=== PATIENT | female | born 1940 | race Caucasian/White ===

== ENCOUNTER 2018-11-08 07:24 | Observation (INO) | payer OTHER ==
[~2018-11-08] VITALS: Ht 165.1 cm; Wt 81.7 kg
[~2018-11-08 07:24] MED LIST: ACET325 PO; ACET500 PO; CALCA500CH PO; CALCIUM POLYCARBOPHIL PO; CALCIUM WITH V1 EACH PO; CELE200 PO; Diovan320 MG; FIBER LAXATIVE PO; GABA100 PO; Hair, Skin & N1 EACH PO; LOSARTAN-HCTZ1 EACH PO; METO100ER PO; OMEP20ER PO
--- NOTE | 2018-11-08 08:22 | NUR ---
PT ADMITTED TO [facility]. AGREES WITH PLANNED SURGERY. MEDS, ALLERGIES AND HX REVIEWED. LUNG SOUNDS CLEAR. PCN ALLERGY AND ANCEF ORDER CLARIFIED WITH DR. FELIX. SHE STATES OK TO PROCEDE WITH ANCEF.
--- NOTE | 2018-11-08 08:33 | NUR ---
NOXIN X3 AMPULES TO NARES BILATERALLY.
--- NOTE | 2018-11-08 09:42 | NUR ---
0930 UP TO VOID.
--- NOTE | 2018-11-08 10:31 | NUR ---
UP TO VOID.
--- NOTE | 2018-11-08 11:41 | NUR ---
11/08/18 1141 [facility],Maritza TENORIO ATTEMPTED SPINAL, UNABLE TO COMPLETE, SWITCHED TO GENERAL.
--- NOTE | 2018-11-08 15:01 | NUR ---
CONSENT FOR CARE PT GAVE THIS SWEDGER PERMISSION TO CARE FOR HER 11/08/18
--- NOTE | 2018-11-08 16:20 | NUR ---
PT STABLE POST OP. PAIN CONTROLLED WITH PRN AND SCHEDULED MEDS. PT TERRY PO WELL. CONT IV FLUIDS. T. ACID COMPLETE. IV ABX SCHEDULED POST OP. PT CALLS APPROPRIATELY. PT HAS NOT WORKED WITH PT YET POST OP. PT HAS NOT VOIDED YET POST OP.
[2018-11-09 04:32] LABS: BASOPHILS ABSOLUTE AUTO 0.01 K/mm3 (0.00-0.23); BASOPHILS PERCENT AUTO 0 % (0-2); EOSINOPHILS PERCENT AUTO 0 % (0-6); Hematocrit 35.7 % (33.0-51.0); IMMATURE GRAN ABSOLUTE AUTO 0.03 K/mm3 (0.00-0.10); IMMATURE GRAN PERCENT AUTO 0 % (0-1); LYMPHOCYTES ABSOLUTE AUTO 0.58 K/mm3 (0.84-5.20); LYMPHOCYTES PERCENT AUTO 6 % (21-46); MONOCYTES ABSOLUTE AUTO 0.59 K/mm3 (0.16-1.47); MONOCYTES PERCENT AUTO 6 % (4-13); Mean Corpuscular HGB Conc 33.6 g/dL (31.5-36.5); Mean Corpuscular Volume 95 fL (80-100); NEUTROPHILS ABSOLUTE AUTO 8.78 K/mm3 (1.96-9.15); NEUTROPHILS PERCENT AUTO 88 % (41-73); Platelet Count 92 K/mm3 (150-400); RDW Coefficient Variation 12.1 % (11.7-14.2); RDW Standard Deviation 42.2 fL (35.1-46.3); Red Blood Cell Count 3.75 M/mm3 (3.80-5.20); White Blood Cell Count 9.99 K/mm3 (4.00-11.30)
[2018-11-09 04:52] LABS: Anion Gap 9 mmol/L (6-16); Blood Urea Nitrogen 20 mg/dL (8-24); Bun/Creatinine Ratio 24.1 (12.0-20.0); CO2, Blood 28 mmol/L (21-32); Calcium, Blood 8.9 mg/dL (8.5-10.1); Chloride, Blood 99 mmol/L (98-108); Creatinine, Blood 0.83 mg/dL (0.40-1.00); Glomerular Filtration Rate >60 (60-); Glucose, Blood 175 mg/dL (70-99); Magnesium, Blood 1.4 mg/dL (1.6-2.4); Potassium, Blood 3.7 mmol/L (3.5-5.5); Sodium, Blood 136 mmol/L (136-145)
--- NOTE | 2018-11-09 08:38 | NUR ---
SHIFT SUMMARY PT A&O X4 T/O SHIFT. POD# 1 L TKA; DRESSING TO L ANT KNEE CDI T/O SHIFT. PT DENIES N/T IN EXT; PPP. PAIN MANGED PER EMAR; CRYOTHERAPY TO L KNEE T/O SHIFT. . ROBEL'S AND SCD'S TO BLE'S. PT UP TO BSC AND THEN TOILET WITH SBA, GB AND FWW. RA; PT DENIES SOB AND CP T/O SHIFT. NAUSEA RESOLVED OVER SHIFT; PT REFUSED NAUSEA MEDICATION. CALL LIGHT IN REACH; PT DEMONSTRATES USE. REPORT GIVEN TO DAY SHIFT RN.
--- NOTE | 2018-11-09 18:36 | NUR ---
SHIFT SUMMARY PT A&OX4, VSS, POD#1 L TKA, AQUACEL/ACEWRAP CDI, SCDS, TEDS, POLAR HUI ON. DENIES PAIN AT THIS TIME, OXY GIVEN 2X, HAS BEEN NAUSEATED TX 4X, PLAN IS TO TRY ULTRAM FOR PAIN. AMB W/FWW & GB TO BRP, CHAIR AND HALLWAY. VOIDING WELL. AT THIS TIME UP TO A CHAIR, INTAKING SMALL AMTS DINNER. WCTM & TX PER EMAR UNTIL REPORT GIVEN TO ONCOMING TIMMY RN.
--- NOTE | 2018-11-10 04:42 | NUR ---
SHIFT SUMMARY: PT POD 2 L TKA. PAIN MANAGED WITH TYLENOL. PT DID NOT NEED ADDITIONAL PAIN MEDICATION, HOWEVER IF PT C/O PAIN, WILL MEDICATE WITH ULTRAM. C/O OF N/V THROUGHOUT SHIFT. MEDICATED WITH ZOFRAN AND PHENERGAN PER EMAR. EMESIS X2. SBA TO BATHROOM WITH WALKER. VOIDING WELL. TERRY ACTIVITY WELL. IN CHAIR FOR MOST OF SHIFT. AQUACEL DRESSING AND CRYOTHERAPY PLACED ON L KNEE. SKUDS AND ROBEL HOSE IN PLACE. SALINE LOCKED AND DRINKING FLUIDS. WILL CONTINUE TO MONITOR FOR N/V.
[2018-11-10] MEDS ORDERED: ACET500 PO (14:15)
[2018-11-10] MEDS ORDERED: ASPI325EC PO (14:16)
[2018-11-10] MEDS ORDERED: ROXICODONE5 MG PO (14:21)
--- NOTE | 2018-11-10 18:09 | NUR ---
reviewed discharge instructions with patient, patients and son. questions answered. patient denies nausea, reports curent pain level is 2. dressing to knee clean dry and intact. 2 aquacell dressings sent home with patient. Krystyna Colin RN
[2018-11-11] MEDS ORDERED: TRAM50 PO (15:50)
[2018-11-11] MEDS ORDERED: Prilosec Otc20 MG PO (18:10)
== END 2018-11-10 18:10 | disposition home or self-care (01) ==
LOC: ORSCMMR 07:24 → SURS 07:26 → ORSCMMR 07:26 → ORD 11:00 → ORSCMMR 11:00 → SURS 14:42 → ORSCMMR 11-10 18:10 → SURS 11-10 18:10
PROVIDERS: ADMIT Orthopaedic Surgery
PROC: 0SRC0J9 Replacement of Right Knee Joint with Synthetic Substitute, Cemented, Open Approach (ICD-10-PCS; principal; 2018-11-08 11:00)
DX: M17.12 Unilateral primary osteoarthritis, left knee (principal); J45.909 Unspecified asthma, uncomplicated; I10 Essential (primary) hypertension; Z88.0 Allergy status to penicillin; Z88.8 Allergy status to other drugs, medicaments and biological substances; Z79.899 Other long term (current) drug therapy
CPT/HCPCS: 36415; 73560-LT; 80048; 83735; 84132; 85025; 88300; 97110; 97116; 97162; 97530; C1713; C1776; G0378; J0171; J0330; J0690; J0735; J2370; J2405; J2765; J2795; J3010; J7120

== ENCOUNTER 2018-11-11 15:30 | Emergency (ER) | payer OTHER ==
[~2018-11-11] VITALS: Ht 165.1 cm; Wt 81.7 kg
[~2018-11-11 15:30] MED LIST changes: +ASPI325EC PO; +ROXICODONE5 MG PO
[2018-11-11] MEDS ORDERED: TRAM50 PO (15:50)
[2018-11-11 16:11] LABS: BASOPHILS ABSOLUTE AUTO 0.02 K/mm3 (0.00-0.23); BASOPHILS PERCENT AUTO 0 % (0-2); EOSINOPHILS ABSOLUTE AUTO 0.01 K/mm3 (0.00-0.68); EOSINOPHILS PERCENT AUTO 0 % (0-6); Hematocrit 33.5 % (33.0-51.0); Hemoglobin 11.5 g/dL (11.5-16.0); IMMATURE GRAN ABSOLUTE AUTO 0.04 K/mm3 (0.00-0.10); IMMATURE GRAN PERCENT AUTO 0 % (0-1); LYMPHOCYTES ABSOLUTE AUTO 0.84 K/mm3 (0.84-5.20); LYMPHOCYTES PERCENT AUTO 9 % (21-46); MONOCYTES ABSOLUTE AUTO 0.82 K/mm3 (0.16-1.47); MONOCYTES PERCENT AUTO 8 % (4-13); Mean Corpuscular HGB 32.2 pg (26.0-34.0); Mean Corpuscular HGB Conc 34.3 g/dL (31.5-36.5); Mean Corpuscular Volume 94 fL (80-100); Mean Platelet Volume 12.1 fL (9.1-12.4); NEUTROPHILS ABSOLUTE AUTO 7.99 K/mm3 (1.96-9.15); NEUTROPHILS PERCENT AUTO 82 % (41-73); Platelet Count 90 K/mm3 (150-400); RDW Coefficient Variation 12.2 % (11.7-14.2); RDW Standard Deviation 42.5 fL (35.1-46.3); Red Blood Cell Count 3.57 M/mm3 (3.80-5.20); White Blood Cell Count 9.72 K/mm3 (4.00-11.30)
[2018-11-11 16:27] LABS: Alanine Aminotransfer (ALT/SGP 11 U/L (12-78); Albumin, Blood 2.5 g/dL (3.4-5.0); Albumin/Globulin Ratio 0.8 (0.8-1.8); Alk Phos 53 U/L (50-136); Anion Gap 8 mmol/L (6-16); Aspartate Aminotrans (AST/SGOT 25 U/L (12-37); Bilirubin, Total 0.6 mg/dL (0.1-1.0); Blood Urea Nitrogen 14 mg/dL (8-24); Bun/Creatinine Ratio 17.9 (12.0-20.0); CO2, Blood 30 mmol/L (21-32); Calcium, Blood 9.1 mg/dL (8.5-10.1); Chloride, Blood 96 mmol/L (98-108); Creatinine, Blood 0.78 mg/dL (0.40-1.00); Globulin, Blood 3.1 g/dL (2.2-4.0); Glomerular Filtration Rate >60 (60-); Glucose, Blood 108 mg/dL (70-99); Potassium, Blood 3.6 mmol/L (3.5-5.5); Sodium, Blood 134 mmol/L (136-145); Total Protein, Blood 5.6 g/dL (6.4-8.2)
[2018-11-11] MEDS ORDERED: Prilosec Otc20 MG PO (18:10)
== END 2018-11-11 18:22 | disposition left against medical advice (07) ==
LOC: ER 15:30
PROVIDERS: Physician Assistant
DX: K92.2 Gastrointestinal hemorrhage, unspecified (principal); Z88.0 Allergy status to penicillin
CPT/HCPCS: 36415; 80053; 82272; 85025; 99284

== ENCOUNTER 2018-11-13 09:20 | Day surgery (SDC) | payer OTHER ==
[~2018-11-13 09:20] MED LIST changes: +Prilosec Otc20 MG PO; +TRAM50 PO
--- NOTE | 2018-11-13 10:00 | NUR ---
DIRECT ADMIT: PT ARRIVED TO ROOM 227 A DIRECT ADMIT. PT HAS BEEN NPO SINCE MIDNIGHT, PT STATES SHE HAS HAD POOR PO INTAKE FOR SEVERAL DAYS. UNABLE TO GET IV ACCESS. DAY SURGERY NOTIFIED. PT DENIES ANY NAUSEA AT THIS TIME. PT HAD BLACK STOOL X1 AT HOME AND NONE SINCE. DENIES EMESIS AT HOME.
--- NOTE | 2018-11-13 10:33 | NUR ---
FROM SURGICAL FLOOR TO SDS IV TO BE STARTED IN SDS
--- NOTE | 2018-11-13 10:58 | NUR ---
11/13/18 1058 [facility] Do Bite Block PlacedPATIENT DETERMINED TO BE ASA APPROPRIATE FOR PROPOFOL SEDATION PRIOR TO START OF PROCEDURE BY 3-LEAD EKG REVIEWED WITH PHYSICIAN PRIOR TO START OF PROCEDURE.Patient to ENDO 1Glasses Removed MONITOR INTACT WITH CONTINUOUS PULSE OXIMETRY AND INTERMITTENT BP.O2 VIA N/C INTACT THROUGHOUT SEDATION/PROCEDURE.Patient confirms NPO status and agrees with scheduled surgery.
--- NOTE | 2018-11-13 13:30 | NUR ---
DISCHARGE: PT RETURNED TO ROOM AT NOON. POST OP VITALS STABLE. PT HAS BEEN UP TO VOID. TERRY SMALL AMTS PO. PT HAS NO PAIN. NO BLEEDING. DC TO HOME AT THIS TIME WITH SPOUSE. VERBAL UNDERSTANDING OF INSTRUCTIONS, FOLLOW UP AND MEDICATIONS. IV DC'D WNL. PT LEFT VIA WHEELCHAIR WITH BELONGINGS.
== END 2018-11-13 13:30 | disposition home or self-care (01) ==
LOC: ORSCMMR 09:20 → EDSTATUS 11:00 → SURS 13:30 → ORSCMMR 13:30 → SURS 13:30
PROVIDERS: Internal Medicine Gastroenterology
PROC: 0DB58ZX Excision of Esophagus, Via Natural or Artificial Opening Endoscopic, Diagnostic (ICD-10-PCS; principal; 2018-11-13 11:00)
DX: K22.10 Ulcer of esophagus without bleeding (principal); K44.9 Diaphragmatic hernia without obstruction or gangrene; K92.1 Melena; I10 Essential (primary) hypertension; G47.33 Obstructive sleep apnea (adult) (pediatric); Z79.899 Other long term (current) drug therapy; Z79.82 Long term (current) use of aspirin; Z88.8 Allergy status to other drugs, medicaments and biological substances; Z88.0 Allergy status to penicillin
CPT/HCPCS: 88305; 88312; J7120

== ENCOUNTER → 2019-11-28 | Outpatient (CLI) | payer OTHER | LOC: LAB EV 10:49 → LAB SHORT 10:49 | DX: L70.0 Acne vulgaris (principal) | CPT/HCPCS: 87070; 87205 ==

== ENCOUNTER → 2020-10-09 | Outpatient (CLI) | payer OTHER | LOC: LAB SHORT 17:15 → PLD 17:15 | DX: D48.5 Neoplasm of uncertain behavior of skin (principal); D69.2 Other nonthrombocytopenic purpura | CPT/HCPCS: 88305 ==

== ENCOUNTER 2022-09-14 08:51 | Inpatient (IN) | payer OTHER ==
[~2022-09-14] VITALS: Ht 162.6 cm; Wt 85.6 kg
[2022-09-14 12:09] LABS: Source, Urine Foley catheter
[2022-09-14 12:15] LABS: Appearance, Urine Clear (Clear); Bilirubin, Urine Neg (Neg); Blood, Urine Neg (Neg); Color, Urine Yellow (P-Yellow); Glucose Qualitative, Urine Neg (Neg); Ketones, Urine Neg (Neg); Leukocyte Esterase, Urine Neg (Neg); Nitrite, Urine Neg (Neg); Protein, Urine Neg (Neg); Specific Gravity, Urine 1.015 (1.003-1.022); Urobilinogen, Urine NORM (Normal)
--- NOTE | 2022-09-14 14:53 | NUR ---
PT RESTING IN BED, SHE REPORTS FEELING COMFORTABLE, SHE IS AWARE HER FOOT IS BROKEN BUT HAS NO PAIN ASSOCIATED WITH IT. DENIES SHORTNESS OF BREATH, DENIES FURTHER NEEDS. SPOKE WITH PATIENT REGARDING NPO STATUS AT MIDNIGHT FOR SURGERY TOMORROW.
--- NOTE | 2022-09-14 18:28 | NUR ---
SHIFT SUMMARY NO ACUTE CHANGES SINCE ARRIVAL TO FLOOR, SHE CONTINUES TO DENY PAIN. SENSATION REMAINS INTACT. PT AWARE OF PLAN FOR SURGERY TOMORROW AND NPO STATUS. TOLERATING PO WELL AT THIS TIME, MARS PATENT AND DRAINING.
[2022-09-15 04:51] LABS: BASOPHILS ABSOLUTE AUTO 0.02 K/mm3 (0.00-0.23); BASOPHILS PERCENT AUTO 0 % (0-2); EOSINOPHILS ABSOLUTE AUTO 0.08 K/mm3 (0.00-0.68); EOSINOPHILS PERCENT AUTO 1 % (0-6); Hematocrit 34.4 % (33.0-51.0); Hemoglobin 11.9 g/dL (11.5-16.0); IMMATURE GRAN ABSOLUTE AUTO 0.01 K/mm3 (0.00-0.10); IMMATURE GRAN PERCENT AUTO 0 % (0-1); LYMPHOCYTES ABSOLUTE AUTO 0.88 K/mm3 (0.84-5.20); LYMPHOCYTES PERCENT AUTO 12 % (21-46); MONOCYTES ABSOLUTE AUTO 0.66 K/mm3 (0.16-1.47); MONOCYTES PERCENT AUTO 9 % (4-13); Mean Corpuscular HGB 32.1 pg (26.0-34.0); Mean Corpuscular HGB Conc 34.6 g/dL (31.5-36.5); Mean Corpuscular Volume 93 fL (80-100); Mean Platelet Volume 11.7 fL (9.1-12.4); NEUTROPHILS PERCENT AUTO 77 % (41-73); Platelet Count 96 K/mm3 (150-400); RDW Coefficient Variation 12.4 % (11.7-14.2); RDW Standard Deviation 42.5 fL (35.1-46.3); Red Blood Cell Count 3.71 M/mm3 (3.80-5.20); White Blood Cell Count 7.15 K/mm3 (4.00-11.30)
--- NOTE | 2022-09-15 04:57 | NUR ---
SHIFT SUMMARY AOX4. SUN'AQ. VSS. REPORTS 2-5/10 PAIN IN L ANKLE, DENIES NEED FOR MEDICATION STATES TOLERABLE & PAIN LEVEL IS BETTER THAN PREVIOUS DAY. DENIES N/V OR DYSPNEA. PT PLANNED FOR L ANKLE SURGERY TODAY. ABLE TO WIGGLE GREAT TOE L FOOT, CAP REFIL <3, CAN RAISE L LEG OFF BED. UNABLE TO FEEL PULSE SINCE [place]A WRAP & SPLINT IN PLACE, DRESSING C/D/I. CALL LIGHT IN REACH & PT ABLE TO MAKE NEEDS KNOWN.
[2022-09-15 05:27] LABS: Albumin, Blood 2.8 g/dL (3.4-5.0); Bilirubin, Total 0.8 mg/dL (0.1-1.0); Bun/Creatinine Ratio 32.2 (12.0-20.0); Calcium, Blood 9.4 mg/dL (8.5-10.1); Creatinine, Blood 0.78 mg/dL (0.40-1.00); Globulin, Blood 2.9 g/dL (2.2-4.0); Magnesium, Blood 1.8 mg/dL (1.6-2.4); Potassium, Blood 3.4 mmol/L (3.5-5.5); Total Protein, Blood 5.7 g/dL (6.4-8.2)
--- NOTE | 2022-09-15 18:16 | NUR ---
SHIFT SUMMARY PT A&OX4, VSS/2LNC. BACK FROM PACU @ 1750, SLEEPING COMFORTABLY/WAKES EASILY. S/P L ORIF, SPLINT/[place]A WRAP, ELEVATED. WILL REPORT TO ONCOMING TIMMY RN.
[2022-09-16 05:20] LABS: BASOPHILS ABSOLUTE AUTO 0.01 K/mm3 (0.00-0.23); BASOPHILS PERCENT AUTO 0 % (0-2); EOSINOPHILS PERCENT AUTO 0 % (0-6); Hematocrit 35.5 % (33.0-51.0); Hemoglobin 12.3 g/dL (11.5-16.0); IMMATURE GRAN ABSOLUTE AUTO 0.04 K/mm3 (0.00-0.10); IMMATURE GRAN PERCENT AUTO 1 % (0-1); LYMPHOCYTES ABSOLUTE AUTO 0.54 K/mm3 (0.84-5.20); LYMPHOCYTES PERCENT AUTO 6 % (21-46); MONOCYTES ABSOLUTE AUTO 0.86 K/mm3 (0.16-1.47); MONOCYTES PERCENT AUTO 10 % (4-13); Mean Corpuscular HGB 32.3 pg (26.0-34.0); Mean Corpuscular HGB Conc 34.6 g/dL (31.5-36.5); Mean Corpuscular Volume 93 fL (80-100); Mean Platelet Volume 11.7 fL (9.1-12.4); NEUTROPHILS ABSOLUTE AUTO 7.41 K/mm3 (1.96-9.15); NEUTROPHILS PERCENT AUTO 84 % (41-73); Platelet Count 88 K/mm3 (150-400); RDW Coefficient Variation 12.4 % (11.7-14.2); RDW Standard Deviation 42.5 fL (35.1-46.3); Red Blood Cell Count 3.81 M/mm3 (3.80-5.20); White Blood Cell Count 8.86 K/mm3 (4.00-11.30)
[2022-09-16 05:38] LABS: Albumin, Blood 2.6 g/dL (3.4-5.0); Albumin/Globulin Ratio 0.8 (0.8-1.8); Bilirubin, Total 0.5 mg/dL (0.1-1.0); Bun/Creatinine Ratio 30.2 (12.0-20.0); Calcium, Blood 9.3 mg/dL (8.5-10.1); Creatinine, Blood 0.76 mg/dL (0.40-1.00); Globulin, Blood 3.1 g/dL (2.2-4.0); Potassium, Blood 3.8 mmol/L (3.5-5.5); Total Protein, Blood 5.7 g/dL (6.4-8.2)
--- NOTE | 2022-09-16 06:04 | NUR ---
SHIFT SUMMARY POD1 L ORIF ANKLE WITH SPLINT AND [place]A WRAP REMAIN CDI. PT WAS VERY DROWSY ALL NIGHT. UNABLE TO GIVE NIGHT MEDS BECAUSE SHE HAD A HARD TIME WAKING UP. VSS. MILDLY HTN. PT IS DOING MUCH BETTER THIS MORNING. SHE IS MORE ALERT AND ANSWERS APPROPRIATELY. PLEASANTLY CONFUSED EASILY REORIENTED. IV FLUIDS INFUSING. PT ALSO DENIES PAIN. MARS PATENT WITH 950ML OUTPUT. CALL LIGHT WITHIN REACH. WILL PROVIDE REPORT TO ONCOMING NURSE.
--- NOTE | 2022-09-16 17:33 | NUR ---
SHIFT SUMMARY PT A&OX4, VSS/RA. POD1 L ANKLE ORIF, SPLINT/[place] WRAP CDI, NWB, ELEVATED. PAIN MANAGED WITH TYLENOL, DENIES NEED FOR OXY. STAND PIVOT TO BSC/BED/CHAIR. TERRY PO. MARS REMOVED AT 1443, AWAITING POST REMOVAL VOID. INCENTIVE SPIROMETER EDU/ENC AND PT DEMONSTRATED T/O SHIFT. WILL REPORT TO ONCOMING NOC RN.
--- NOTE | 2022-09-17 05:42 | NUR ---
MEASUREMENT SUPERINTENDENT SUMMARY PT IS POD 0 FOR L ANKLE ORIF. PT HAS DONE WELL TRANSFERRING TO [facility] WITH A STAND PIVOT AND 1-2 PERSON ASSIST. NWB ON L FOOT. PT HAS VOIDED MULTIPLE TIMES THROUGH THE NIGHT. PT REPORTS MINIMAL PAIN, JUST SOME DISCOMFORT WHILE AMBULATING. PT HAS FULL SENSATION TO L FOOT/LEG AND CAN WIGGLE TOES. VSS, WILL CONTINUE TO MONITOR.
--- NOTE | 2022-09-17 18:29 | NUR ---
SHIFT SUMMARY POD 2 L ANKLE ORIF. SPLINT & [place] WRAP IN PLACE, C/D/I. WORKED WOTH PT & OT THIS SHIFT AND DID VERY WELL. TRANSFERRING 1P ASSIST TO BSC/CHAIR/BED, NWB LEFT LEG. REPORTS MINIMAL PAIN, MEDICATED WITH TYLENOL PER EMAR. EATING, DRINKING, & VOIDING WELL. APPROVED TO SNF, AWAITING INSURANCE APPROVAL. CALLS APPROPRIATELY, CALL LIGHT INR EACH. WILL REPORT TO ONCOMING RN.
--- NOTE | 2022-09-18 05:14 | NUR ---
METAL MODEL MAKER SUMMARY POD 2 FOR L ANKLE ORIF. PT CONTINUES TO DO WELL WITH NWB STATUS ON L FOOT, ABLE TO TURN/PIVOT TO BSC/CHAIR WITH 1 ASSIST. PAIN CONTROLLED WITH SCHEDULED TYLENOL. PT IS PENDING INSURANCE APPROVAL TO BE PLACED AT SNF. VSS, WILL CONTINUE TO MONITOR.
[2022-09-18 13:16] LABS: BASOPHILS ABSOLUTE AUTO 0.01 K/mm3 (0.00-0.23); BASOPHILS PERCENT AUTO 0 % (0-2); EOSINOPHILS ABSOLUTE AUTO 0.06 K/mm3 (0.00-0.68); EOSINOPHILS PERCENT AUTO 1 % (0-6); Hematocrit 32.8 % (33.0-51.0); Hemoglobin 11.1 g/dL (11.5-16.0); IMMATURE GRAN ABSOLUTE AUTO 0.01 K/mm3 (0.00-0.10); IMMATURE GRAN PERCENT AUTO 0 % (0-1); LYMPHOCYTES ABSOLUTE AUTO 0.87 K/mm3 (0.84-5.20); LYMPHOCYTES PERCENT AUTO 14 % (21-46); MONOCYTES ABSOLUTE AUTO 0.41 K/mm3 (0.16-1.47); MONOCYTES PERCENT AUTO 7 % (4-13); Mean Corpuscular HGB 31.8 pg (26.0-34.0); Mean Corpuscular HGB Conc 33.8 g/dL (31.5-36.5); Mean Corpuscular Volume 94 fL (80-100); Mean Platelet Volume 11.8 fL (9.1-12.4); NEUTROPHILS ABSOLUTE AUTO 4.87 K/mm3 (1.96-9.15); NEUTROPHILS PERCENT AUTO 78 % (41-73); Platelet Count 115 K/mm3 (150-400); RDW Coefficient Variation 12.5 % (11.7-14.2); RDW Standard Deviation 42.9 fL (35.1-46.3); Red Blood Cell Count 3.49 M/mm3 (3.80-5.20); White Blood Cell Count 6.23 K/mm3 (4.00-11.30)
[2022-09-18 13:38] LABS: Albumin, Blood 2.4 g/dL (3.4-5.0); Albumin/Globulin Ratio 0.7 (0.8-1.8); Bilirubin, Total 0.4 mg/dL (0.1-1.0); Bun/Creatinine Ratio 22.2 (12.0-20.0); Calcium, Blood 9.5 mg/dL (8.5-10.1); Creatinine, Blood 0.77 mg/dL (0.40-1.00); Globulin, Blood 3.4 g/dL (2.2-4.0); Potassium, Blood 3.7 mmol/L (3.5-5.5); Total Protein, Blood 5.8 g/dL (6.4-8.2)
--- NOTE | 2022-09-18 18:07 | NUR ---
PT REPORTS LITTLE TO NO PAIN TO LEFT ANKLE, REPORTS HAVING NECK PAIN WHICH SHE HAD PRIOR TO ADMISSION. PT 1 PERSON TRANSFER WITH USE OF WALKER AND MAINTAINS NON WEIGHT BEARING STATUS. DENIES PAIN WITH VOIDING. UA ORDERED AND PT HAD BM WITH LAST VOIDED SPECIMEN
[2022-09-18 18:47] LABS: Source, Urine Clean Catch
[2022-09-18 18:51] LABS: Appearance, Urine Clear (Clear); Bilirubin, Urine Neg (Neg); Blood, Urine 1+ (Neg); Color, Urine Yellow (P-Yellow); Glucose Qualitative, Urine Neg (Neg); Ketones, Urine Neg (Neg); Leukocyte Esterase, Urine 1+ (Neg); Nitrite, Urine Neg (Neg); Protein, Urine 1+ (Neg); Urobilinogen, Urine NORM (Normal)
[2022-09-18 19:00] LABS: Bacteria Rare /hpf; Squamous Epithelial Cells Many /hpf (Few)
--- NOTE | 2022-09-19 04:48 | NUR ---
WATER JET OPERATOR SUMMARY POD 2 L ANKLE ORIF. PT DENIES PAIN MEDS ASIDE FROM SCHEDULED TYLENOL. DOING BETTER WITH GETTING FROM BED TO CHAIR W/ NWB STATUS OF L FOOT. SOME DISORIENTATION TONIGHT AFTER PT WAKES UP, PT EASILY REORIENTED. PT HAD REPORTED THAT PEOPLE WERE COMING TO "DO SOME REMODELING OF THIS ROOM". VSS, WILL CONTINUE TO MONITOR.
[2022-09-19 13:38] LABS: SARS-Cov-2 (COVID-19) PCR, MMC NEGATIVE (NEGATIVE)
--- NOTE | 2022-09-19 14:33 | NUR ---
REPORT CALLED TO MOON ROBERTS AT [facility] WHO WILL BE RECEIVING PATIENT.
--- NOTE | 2022-09-19 15:43 | NUR ---
PT DISCHARGED VIA NON EMERGENCY TRANSPORT [facility]. PT IN AGREEMENT WITH PLAN TO TRANSFER TO SNF
== END 2022-09-19 15:30 | disposition home or self-care (01) | DRG 494 ==
LOC: ER 08:51 → SURS 11:59
PROVIDERS: Family Medicine; Hospitalist; Orthopaedic Surgery; Physician Assistant; ADMIT Internal Medicine
PROC: 2W3TX1Z Immobilization of Left Foot using Splint (ICD-10-PCS; 2022-09-14)
PROC: 0QSH04Z Reposition Left Tibia with Internal Fixation Device, Open Approach (ICD-10-PCS; 2022-09-15)
PROC: 0QSK04Z Reposition Left Fibula with Internal Fixation Device, Open Approach (ICD-10-PCS; principal; 2022-09-15 15:00)
DX: S82.852A Displaced trimalleolar fracture of left lower leg, initial encounter for closed fracture (principal); S93.05XA Dislocation of left ankle joint, initial encounter; K21.9 Gastro-esophageal reflux disease without esophagitis; I10 Essential (primary) hypertension; G47.33 Obstructive sleep apnea (adult) (pediatric); G43.909 Migraine, unspecified, not intractable, without status migrainosus; M17.12 Unilateral primary osteoarthritis, left knee; D69.6 Thrombocytopenia, unspecified; N39.46 Mixed incontinence; R35.0 Frequency of micturition; I67.2 Cerebral atherosclerosis; Z20.822 Contact with and (suspected) exposure to COVID-19; W01.0XXA Fall on same level from slipping, tripping and stumbling without subsequent striking against object, initial encounter; Z96.652 Presence of left artificial knee joint; Z88.0 Allergy status to penicillin; Z88.8 Allergy status to other drugs, medicaments and biological substances; Z79.899 Other long term (current) drug therapy; Z98.890 Other specified postprocedural states; Z90.722 Acquired absence of ovaries, bilateral; Z90.710 Acquired absence of both cervix and uterus
CPT/HCPCS: 27818; 36415; 51702; 73600; 80053; 81001; 81003; 83735; 85025; 87086; 96374-59; 97110; 97116; 97162; 97166; 97530; 97535; 99284-25; A9270; C1713; J0690; J1100; J1650; J2250; J2370; J2405; J2704; J2795; J3010; J7030; J7120; U0004

== ENCOUNTER → 2023-11-20 | Outpatient (CLI) | payer OTHER ==
[2023-11-21 10:15] LABS: Stool Occult Bld Immuno 1 Negative (NEGATIVE)
== END | disposition home or self-care (01) ==
LOC: LAB 16:43 → LAB SHORT 16:43
PROVIDERS: Family Medicine
DX: Z12.11 Encounter for screening for malignant neoplasm of colon (principal)
CPT/HCPCS: G0328